=== PATIENT | female | born 1950 | race Caucasian/White ===

== ENCOUNTER → 2017-04-26 | Outpatient (CLI) | payer OTHER ==
[~2017-04-26] MED LIST: ACET-66 PO; ALBU8.5H8 IH; ASPI-1182 PO; CARV3 PO; CARV6 PO; DSS100 PO; FURO40 PO; GABA100T PO; LOSA50TA37 PO; NITR.4 SL; OMEP20 PO; VITA1TAB20 PO; VITAD1000 PO; [UNRECOGNIZED DRUG - OTHER] PO
== END | disposition home or self-care (01) ==
LOC: RADPV 10:39
PROVIDERS: ATTEND Specialist
DX: M50.321 Other cervical disc degeneration at C4-C5 level (principal); M50.322 Other cervical disc degeneration at C5-C6 level; M50.323 Other cervical disc degeneration at C6-C7 level; M47.812 Spondylosis without myelopathy or radiculopathy, cervical region; M46.02 Spinal enthesopathy, cervical region
CPT/HCPCS: 72040